=== PATIENT | male | born 2000 | race Two or more races ===

== ENCOUNTER 2023-04-15 16:29 | Emergency (ER) | payer MEDICAID ==
[~2023-04-15 16:29] MED LIST: ALB0.5UD IH; ALBU18HF2 IH
== END 2023-04-15 17:38 | disposition left against medical advice (07) ==
LOC: ER 16:30
DX: R10.9 Unspecified abdominal pain (principal); Z53.21 Procedure and treatment not carried out due to patient leaving prior to being seen by health care provider